=== PATIENT | male | born 1985 | race Caucasian/White ===

== ENCOUNTER 2024-03-09 11:22 | Outpatient (AMB) | payer BC, SELFPAY ==
--- NOTE | 2024-03-09 11:32 | A.OFFPC_ITS ---
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 Has been out of medication for six months. 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 He reports a history of significant weight fluctuations, having lost approximately 60-70 pounds about ten years ago through increased physical activity, specifically work-related. He is considering starting on semaglutide (Wegovy) for weight loss support and reports trying various diets such as calorie counting, keto, [place], and fsuz-[id number] fat burners without significant long-term success. The patient denies a family history of thyroid cancer or personal history of pancreatitis. The patient also seeks the renewal of lisinopril, which he was previously taking at 5 mg, for management of essential hypertension. He reports having been off Wellbutrin for the past seven months after previously taking it at 300 mg and seeks to resume this medication for depressive symptoms. Additionally, the patient presents with skin discoloration along the arms and chest, which are non-pruritic and have persisted despite treatment with antifungal cream. He states the rash is pink and raised. he would like to see a credit card interviewer. 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 He has not used an EpiPen since age 20, despite engaging in outdoor activities that may expose him to allergens. Health Maintenance - Discussion on weight loss strategies, including lifestyle modifications and possible use of semaglutide. - Renewed medications for blood pressure management. - Discussed management of depressive sym ptoms with Wellbutrin. - Emphasized importance of carrying an E piPen due to history of anaphylaxis. - Recommended dermatology evaluation for skin lesions. 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 - Reports functional limitations due to current weight. - Engages in exercise, including plans f or hiking. - Significant weight loss history potent ially related to high physical activity levels. Review of Systems - Skin: Reports discoloration and non-it abelardo, non-painful lesions on arms and chest; denies itching. - Mental Health: Reports depressive epis odes, anxiety. - General: Denies current respiratory is sues or recurrent infections. Physical Exam - Cardiovascular- No noted abnormalities in auscultation. - Respiratory- Clear lung sounds upon au scultation. - Skin- Non-itchy, bumpy lesions present in a line across chest. Results Plan - Submit prescription for Wegovy conting ent on insurance approval. - Renew lisinopril 5 mg for hypertension management. - Reinitiate Wellbutrin at 150 mg once d aily with follow-up in four to six weeks to monitor response. - Prescribe EpiPen with a refill, consid ering patient's hiking activities and history of anaphylaxis. - Refer to dermatology for evaluation of skin lesions suspected as possible dermatitis; consider use of topical triamcinolone until seen. - Document dietary interventions and marci ght management attempts for insurance submission. - Print referral for [facility]. Patient was informed and verbally consented to the use of an ambient scribe for clinic note documentation during this visit. 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 I emphasized the need to cease eating when full to prevent potential adverse reactions. We revie wed past attempts at dietary modifications and potential support through medication. I addressed the patient's concerns and experience with Wellbutrin, opting to start at a lower dose due to previous discontinuation, with plans for monitoring. I reinforced the importance of having an EpiPen due to his history of severe allergic reactions and encouraged carrying it during outdoor activities. The referral to dermatology for further evaluation of skin lesions was provided, with advice to take photographs for the specialist. Overall, the patient is advised to follow up in four to six weeks for medication assessment and skin evaluation. Patient Instructions - Start Wegovy if insurance approves and follow administration instructions carefully. - Continue lisinopril 5 mg daily for blo od pressure management. - Begin Wellbutrin 150 mg daily and lakisha tor for any mood changes. - Always carry an EpiPen when outdoors, especially during hiking. - Apply the prescribed topical steroid c ream to affected skin areas as directed. - Schedule and attend dermatology appoin tment; bring photographs of skin lesions. - Maintain current dietary and exercise routines. - Follow up in four to six weeks for keven ssessment. [facility] Surgical History (Updated 03/09/24 @ 11:40 by Reema Solorio CMA) No pertinent past surgical history Family History (Updated 03/09/24 @ 11:42 by Reema Solorio CMA) Mother Stroke Maternal Grandmother Heart disease PVD (peripheral vascular disease) Father Stroke Alcoholic Other Substance abuse Social History (Updated 03/09/24 @ 11:42 by Reema Solorio CMA) Housing: Apartment Housing Other:: dulex Alcohol intake: current Patient Tobacco Use Status: Former Tobacco user Tobacco use type: Cigarette Cigarette Packs Per Day: 1 Years Smoked: 10 e-Cigarette/Vaping Use: Former Use Second Hand Smoke Exposure: No service: No Current occupational status: employed 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 1. Little interest or pleasure in doing things: not at all 2. Feeling down, depressed, or hopeless: not at all 3. Trouble falling or staying asleep, or sleeping too much: not at all 4. Feeling tired or having little energy: several days 5. Poor appetite or overeating: not at all 6. Feeling bad about yourself - or that you are a failure or have let yourself or your family down: not at all 7. Trouble concentrating on things, such as reading the newspaper or watching television: not at all 8. Moving or speaking so slowly that other people could have noticed. Or the opposite - being so fidgety or restless that you have been moving around a lot more than usual: not at all 9. Thoughts that you would be better off or of hurting yourself in some way: not at all Total score: 1 Depression Screening Interpretation: Negative Depression Screening Done: Yes [id number] - PHQ-9 Billing: Yes Source: Developed by Drs. Wero Romano, April Holcomb, Azael Whiting and colleagues, with an educational guillermo from [employer]. Thrive Questionnaire Date Thrive assessed: 03/02/24 I am a: Patient What is your living situation today?: I have a steady place to live Within the past 12 months, did the food you bought not last and you didn't have the money to get more?: Never true Within the past 12 months, did you worry whether your food would run out before you got money to buy more?: Never true Do you have trouble paying for medicines?: No Do you have trouble getting transportation to medical appointments?: No Do you have trouble paying your heating and electricity bill?: No Do you have trouble taking care of your child, family member or friend?: No Do you have trouble with day-to-day activities such as bathing, preparing meals, shopping, managing finances, etc.?: No Are you currently unemployed and looking for a job?: No Are you interested in more education?: No Please select the resources that you would like help with: None Currently or been in a relationship where the following occur: No concerns reported THRIVE Score: 0 AUDIT C Alcohol Use Questionnaire (AUDIT-C) 1. How often do you have a drink containing alcohol?: 2-4 times a month 2. How many drinks containing alcohol do you have on a typical day when you are drinking?: 3 or 4 3. How often do you have six or more drinks on one occasion?: Less than monthly Total Score: 4 DUANE-7 AMB Questionnaire DUANE-7 Date DUANE - 7 assessed: 03/09/24 Feeling nervous, anxious, or on edge: 1 = Several days Not being able to stop or control worryin = Not at all Worrying too much about different things: 1 = Several days Trouble relaxin = Not at all Being so restless that it is hard to sit still: 0 = Not at all Becoming easily annoyed or irritable: 1 = Several days Feeling afraid as if something awful might happen: 0 = Not at all Total DUANE-7 score (0-4 normal; 5-9 mild; 10-14 moderate; 15-21 severe): 3 Source: Developed by Drs. Wero Romano, April Holcomb, Azael Whiting and colleagues, with an educational guillermo from [employer]. DUANE-7 Assessment Billing DUANE-7 Assessment Tool: DUANE-7 Assessment 33922 Physical exam (Primary Care) Vital Signs: Last Vital Signs Pulse 85 03/09/24 11:35 BP 132/88 03/09/24 11:35 Pulse Ox 96 03/09/24 11:35 Oxygen Delivery Method Room Air 03/09/24 11:35 BMI result Body Mass Index 40.1 Tobacco/Smoking Status: Tobacco use Status Tobacco use date assessed 03/09/24 03/09/24 11:44 Patient Tobacco Use Status Former Tobacco user 03/09/24 11:44 Tobacco use type Cigarette 03/09/24 11:44 e-Cigarette/Vaping Use Former Use 03/09/24 11:44 PHQ-9: PHQ-9 Score PHQ-9: Total score 1 03/09/24 11:45 Depression Screening Interpretation: Negative Thrive Assessment: Date of Thrive Assessment Date Thrive assessed 03/02/24 03/09/24 11:44 Currently or been in a relationship where the following occur: No concerns reported Const Orientation/consciousness: patient oriented x3 [facility] Ears: hearing grossly normal bilaterally Neck Thyroid: Thyroid normal Lymphatic: no lymphadenopathy noted Resp Auscultation: clear to auscultation bilaterally Cardio Rate: regular rate Rhythm: regular rhythm Heart sounds: S1 normal heart sound present and S2 normal heart sound present GI Inspection: Yes normal to inspection Palpation (GI): Soft to palpation and Other GI palpation findings present (nontender, no cva tenderness) Auscultation: normoactive bowel sounds Rectal Exam - Male: Yes deferred Skin Other: There is a scattered erythematous, blanching, papular rash noted on the upper chest and on the right upper arm. Neuro General: patient oriented x3, gait normal and no focal motor deficits Coding Level of Care Code Est Pt Level 4 (04324) Complex EM visit Add On G2211 Diagnoses HTN (hypertension) I10 Severe obesity (BMI >= 40) E66.01 Skin rash R21 Dysthymia F34.1 Additional Codes DUANE-7 Assessment Billing - DUANE-7 Assessment Tool: DUANE-7 Assessment [id number] ([id number]) PHQ-9 - 28914 - PHQ-9 Billing: Yes ([id number]) Assessment & Plan Assessment & Plan (1) HTN (hypertension): Code(s): I10 - Essential (primary) hypertension Category: Medical Plan: Restart lisinopril (2) Severe obesity (BMI >= 40): Code(s): E66.01 - Morbid (severe) obesity due to excess calories Category: Medical Plan: Wegovy ordered. Discussed risks and benefits and adverse effects of this medication. Advised patient to follow up for recheck (3) Skin rash: Code(s): R21 - Rash and other nonspecific skin eruption Category: Medical Plan: Triamcinolone cream ordered. Referral to derm. (4) Dysthymia: Code(s): F34.1 - Dysthymic disorder Category: Medical Plan: wellbutrin ordered Orders: Orders Complete Blood Count Auto Diff Today E66.01 - Morbid (severe) obesity due to excess calories, I10 - Essential (primary) hypertension Comprehensive [place]. Panel Fast Today E66.01 - Morbid (severe) obesity due to excess calories, I10 - Essential (primary) hypertension Lipid Panel Today E66.01 - Morbid (severe) obesity due to excess calories, I10 - Essential (primary) hypertension TSH reflex Free T4 Today E66.01 - Morbid (severe) obesity due to excess calories, I10 - Essential (primary) hypertension Hemoglobin A1c Today E66.01 - Morbid (severe) obesity due to excess calories, I10 - Essential (primary) hypertension, R73.01 - Impaired fasting glucose Vitamin B12 and Folate Today E66.01 - Morbid (severe) obesity due to excess calories, I10 - Essential (primary) hypertension Magnesium Today E66.01 - Morbid (severe) obesity due to excess calories, I10 - Essential (primary) hypertension Referrals Dermatology Referral R21 - Rash and other nonspecific skin eruption Medications: New 2 semaglutide (weight loss) (Wegovy) 0.25 mg (0.5 mL) subcut QWEEK 2 mL 1RF bupropion HCl XL (Wellbutrin XL) 150 mg PO QAM 90 tabs 1RF triamcinolone acetonide 0.025% 1 appl topical BID 80 grams 1RF lisinopril 5 mg PO DAILY 90 tabs 0RF epinephrine (EpiPen) for 2 doses 0.3 mg (0.3 mL) IM Q10M PRN 2 ea 1RF anaphylaxis
[2024-03-09 11:35] VITALS: BP 132/88; PULSE 85; O2SAT 96; BMI 40.1
== END 2024-03-09 12:12 | disposition home or self-care (01) ==
PROVIDERS: PCP Physician Assistant; Visit Provider Physician Assistant
DX: I10 Essential (primary) hypertension (principal); E66.01 Morbid (severe) obesity due to excess calories; Z68.41 Body mass index [BMI] 40.0-44.9, adult; R21 Rash and other nonspecific skin eruption; F34.1 Dysthymic disorder

== ENCOUNTER → 2024-03-09 11:22 | Outpatient (BNVA) | payer BC, SELFPAY | PROVIDERS: PCP Physician Assistant; Visit Provider Physician Assistant | DX: I10 Essential (primary) hypertension (principal); E66.01 Morbid (severe) obesity due to excess calories; Z68.41 Body mass index [BMI] 40.0-44.9, adult; R21 Rash and other nonspecific skin eruption; F34.1 Dysthymic disorder | CPT/HCPCS: 96127 ==

== ENCOUNTER 2024-03-13 10:34 | Outpatient (REF) | payer BC, SELFPAY ==
[2024-03-13 14:22] LABS: MANUAL DIFF FLAG NO
[2024-03-13 14:38] LABS: Basophils Percent Auto 0.4 % (0-2); Eosinophils Absolute Auto 0.1 X10*3/uL (0.0-0.4); Eosinophils Percent Auto 1.1 % (0-4); Hematocrit 44.7 % (42.0-52.0); Hemoglobin 15.5 g/dl (14.0-18.0); Imm Gran Abs Auto 0.02 X10*3/uL (0.00-0.03); Imm Gran Pct Auto 0.4 % (0.0-0.4); Lymphocytes Absolute Auto 1.5 X10*3/uL (1.2-4.9); Lymphocytes Percent Auto 27.9 % (20-40); Mean Corpuscular HGB Conc 34.7 g/dl (31.0-36.0); Mean Corpuscular Hemoglobin 31.6 pg (27.0-33.0); Mean Platelet Volume 9.2 fL (9.4-12.4); Monocytes Absolute Auto 0.5 X10*3/uL (0.1-1.2); Monocytes Percent Auto 8.7 % (2-11); Neutrophils Absolute Auto 3.3 x10*3/uL (2.0-8.3); Neutrophils Percent Auto 61.5 % (45-73); Platelet Count 267 X10*3/uL (160-400); Red Blood Count 4.91 X10*6/uL (4.60-5.80); Red Cell Distribution Width 11.6 % (11.0-16.0); White Blood Count 5.3 X10*3/uL (4.8-10.8)
[2024-03-13 14:43] LABS: Estimated Average Glucose 88 mg/dL; Hemoglobin A1C 112.4688 umol/L; Hemoglobin A1c % 4.7 % (<6.0); Total Hemoglobin (HGBA1C) 3975.5291 umol/L
[2024-03-13 15:14] LABS: Alanine Aminotransferase 32 U/L (0-40); Albumin Level 4.6 g/dL (3.5-5.0); Anion Gap 15 (12-20); Aspartate Amino Transferase 29 U/L (5-37); Bilirubin Total 0.9 mg/dL (0.0-1.0); Blood Urea Nitrogen 14 mg/dL (9-16); Calcium 9.6 mg/dL (8.4-10.2); Carbon Dioxide 24 mmol/L (22-29); Chloride 105 mmol/L (96-108); Cholesterol 176 mg/dL (<200); Estimated Glomerular Filt Rate > 60; Glucose Fasting 62 mg/dL (60-99); HDL Cholesterol 33 mg/dL (>40); LDL Cholesterol Calculated 123 mg/dL (<100); Magnesium 2.2 mg/dL (1.6-2.6); Potassium 3.9 mmol/L (3.3-5.1); Sodium 140 mmol/L (135-145); Total Protein 7.8 g/dL (6.5-8.0); Triglycerides 102 mg/dL (<150)
[2024-03-13 15:26] LABS: TSH reflex Free T4 0.75 uIU/mL (0.32-4.0)
[2024-03-13 15:34] LABS: Folate 4.1 ng/mL (> or = 4.0); Vitamin B12 470 pg/mL (200-900)
[2024-03-13 15:45] LABS: Alkaline Phosphatase 73 U/L (39-117)
== END 2024-03-13 10:35 | disposition home or self-care (01) ==
LOC: HO.WFDLDS 10:34
PROVIDERS: Visit Provider Physician Assistant
DX: I10 Essential (primary) hypertension (principal); E66.01 Morbid (severe) obesity due to excess calories; R73.01 Impaired fasting glucose
CPT/HCPCS: 36415; 80053; 80061; 82607; 82746; 83036; 83735; 84443; 85025

== ENCOUNTER 2024-04-06 11:01 | Outpatient (AMB) | payer BC, SELFPAY ==
--- NOTE | 2024-04-06 11:20 | A.OFFPC_ITS ---
Vital Signs 04/06/24 11:23 Height 5 ft 9.33 in Weight 264 lb 4 oz BMI 38.6 BP 118/86 Blood Pressure Location Rt brachial Position Sitting Pulse 77 Pulse Source Pulse Oximeter Pulse Oximetry (%) 99 Oxygen Delivery Method Room Air Intake Visit Reasons: labs and meds Intake Note: Follow up. lab results. Tip Tester Required: No Allergies Penicillins Allergy (Unknown, Verified 03/09/24 11:33) Rash bee stings Allergy (Severe, Uncoded 03/09/24 11:33) Anaphylaxis Medication List - Last Reconciled 04/06/24 by Julia Lopez PA-C bupropion HCl XL (Wellbutrin XL) 150 mg PO QAM epinephrine (EpiPen) 0.3 mg (0.3 mL) IM Q10M PRN lisinopril 5 mg PO DAILY triamcinolone acetonide 0.025% 1 appl topical BID Tobacco use date assessed: 03/09/24 Dental Screening Dental Screen Date: 03/09/24 HPI labs and meds HPI Details Patient is a 39-year-old male who presents today for a follow up. CV: Blood pressure today in the office is 118/86. He is currently on lisinopril 5 mg. Psych: Doing well on Wellbutrin 150 mg. No SI/HI. General: Recently started on Wegovy. Tolerating well. He has lost 10 lb since our last visit. [facility] Surgical History (Updated 03/09/24 @ 11:40 by Reema Solorio CMA) No pertinent past surgical history Family History (Updated 03/09/24 @ 11:42 by Reema Solorio CMA) Mother Stroke Maternal Grandmother Heart disease PVD (peripheral vascular disease) Father Stroke Alcoholic Other Substance abuse Social History (Updated 03/09/24 @ 11:42 by Reema Solorio CMA) Housing: Apartment Housing Other:: dulex Alcohol intake: current Patient Tobacco Use Status: Former Tobacco user Tobacco use type: Cigarette Cigarette Packs Per Day: 1 Years Smoked: 10 e-Cigarette/Vaping Use: Former Use Second Hand Smoke Exposure: No service: No Current occupational status: employed 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 Current occupational exposures/hazards: Yes Cognitive needs: No Hearing needs: No Vision needs: No Questionnaire Thrive Questionnaire Date Thrive assessed: 03/02/24 I am a: Patient What is your living situation today?: I have a steady place to live Within the past 12 months, did the food you bought not last and you didn't have the money to get more?: Never true Within the past 12 months, did you worry whether your food would run out before you got money to buy more?: Never true Do you have trouble paying for medicines?: No Do you have trouble getting transportation to medical appointments?: No Do you have trouble paying your heating and electricity bill?: No Do you have trouble taking care of your child, family member or friend?: No Do you have trouble with day-to-day activities such as bathing, preparing meals, shopping, managing finances, etc.?: No Are you currently unemployed and looking for a job?: No Are you interested in more education?: No Please select the resources that you would like help with: None Currently or been in a relationship where the following occur: No concerns rep orted THRIVE Score: 0 DUANE-7 AMB Questionnaire DUANE-7 Date DUANE - 7 assessed: 03/09/24 Source: Developed by Drs. Wero Romano, April Holcomb, Azael Whiting and colleagues, with an educational guillermo from [employer]. Physical exam (Primary Care) Vital Signs: Last Vital Signs Pulse 77 04/06/24 11:23 BP 118/86 04/06/24 11:23 Pulse Ox 99 04/06/24 11:23 Oxygen Delivery Method Room Air 04/06/24 11:23 BMI result Body Mass Index 38.6 Tobacco/Smoking Status: Tobacco use Status Tobacco use date assessed 03/09/24 04/06/24 11:22 Patient Tobacco Use Status Former Tobacco user 04/06/24 11:22 Tobacco use type Cigarette 04/06/24 11:22 e-Cigarette/Vaping Use Former Use 04/06/24 11:22 Thrive Assessment: Date of Thrive Assessment Date Thrive assessed 03/02/24 04/06/24 11:22 Currently or been in a relationship where the following occur: No concerns reported Const Orientation/consciousness: patient oriented x3 [facility] Ears: hearing grossly normal bilaterally Neck Thyroid: Thyroid normal Lymphatic: no lymphadenopathy noted Resp Auscultation: clear to auscultation bilaterally Cardio Rate: regular rate Rhythm: regular rhythm Heart sounds: S1 normal heart sound present and S2 normal heart sound present GI Inspection: Yes normal to inspection Palpation (GI): Soft to palpation and Other GI palpation findings present (nontender, no cva tenderness) Auscultation: normoactive bowel sounds Rectal Exam - Male: Yes deferred Skin General skin exam: no rashes or lesions noted Neuro General: patient oriented x3, gait normal and no focal motor deficits Results Reviewed Results Reviewed: Laboratory Tests 03/13/24 10:35 WBC 5.3 RBC 4.91 Hgb 15.5 Hct 44.7 Plt Count 267 Sodium 140 Potassium 3.9 Chloride 105 Carbon Dioxide 24 Anion Gap 15 BUN 14 Creatinine 0.82 Estimated GFR > 60 Fasting Glucose 62 Hemoglobin A1c % 4.7 Calcium 9.6 Magnesium 2.2 AST 29 ALT 32 Cholesterol 176 LDL Cholesterol, Calc 123 H HDL Cholesterol 33 L Vitamin B12 470 TSH 0.75 Coding Level of Care Code Est Pt Level 4 (96556) Complex EM visit Add On G2211 Diagnoses Dysthymia F34.1 Severe obesity (BMI >= 40) E66.01 HTN (hypertension) I10 Assessment & Plan Assessment & Plan (1) Dysthymia: Code(s): F34.1 - Dysthymic disorder Category: Medical Plan: doing well on wellbutrin (2) Severe obesity (BMI >= 40): Code(s): E66.01 - Morbid (severe) obesity due to excess calories Category: Medical Plan: down 10 lbs increased wegovy to 0.5 mg (3) HTN (hypertension): Code(s): I10 - Essential (primary) hypertension Category: Medical Plan: Continue current regimen. Tolerating well. Orders: Orders Basic Metabolic Panel Today E66.01 - Morbid (severe) obesity due to excess calories, I10 - Essential (primary) hypertension Medications: New semaglutide (weight loss) (Wegovy) 0.5 mg (0.5 mL) subcut QWEEK 2 mL 1RF
[2024-04-06 11:23] VITALS: BP 118/86; PULSE 77; O2SAT 99; BMI 38.6
== END 2024-04-06 11:53 | disposition home or self-care (01) ==
PROVIDERS: PCP Physician Assistant; Visit Provider Physician Assistant
DX: I10 Essential (primary) hypertension (principal); F34.1 Dysthymic disorder; E66.01 Morbid (severe) obesity due to excess calories; Z68.38 Body mass index [BMI] 38.0-38.9, adult

== ENCOUNTER 2024-07-06 09:32 | Outpatient (AMB) | payer BC, SELFPAY ==
[2024-07-06 09:44] VITALS: BP 130/82; PULSE 67; RESP 16; O2SAT 97; BMI 36.5
--- NOTE | 2024-07-06 09:44 | A.OFFPC_ITS ---
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: No Allergies Penicillins Allergy (Unknown, Verified 07/06/24 09:45) Rash bee stings Allergy (Severe, Uncoded 07/06/24 09:45) Anaphylaxis Medication List - Last Reconciled 07/06/24 by Julia Lopez PA-C bupropion HCl XL (Wellbutrin XL) 150 mg PO QAM epinephrine (EpiPen) 0.3 mg (0.3 mL) IM Q10M PRN lisinopril 5 mg PO DAILY multivitamin 1 tab PO DAILY semaglutide (weight loss) (Wegovy) 0.5 mg (0.5 mL) subcut QWEEK Tobacco use date assessed: 07/06/24 Dental Screening Dental Screen Date: 07/06/24 Did you have a dental visit in the last 12 months?: Yes Did you have a dental problem in the last 6 months where you did not have access to dental care?: No Was dental information given to patient?: Patient has dentist HPI f/u meds HPI Details Patient is a 39-year-old male who presents today for a follow up. CV: Blood pressure today in the office is 130/82. He is currently on lisinopril 5 mg. Psych: Doing well on Wellbutrin 150 mg. No SI/HI. General: Recently started on Wegovy. Tolerating well. He has lost 30 lbs so far with wegovy and diet. [facility] Surgical History (Updated 03/09/24 @ 11:40 by Reema Solorio CMA) No pertinent past surgical history Family History (Updated 03/09/24 @ 11:42 by Reema Solorio CMA) Mother Stroke Maternal Grandmother Heart disease PVD (peripheral vascular disease) Father Stroke Alcoholic Other Substance abuse Social History (Updated 03/09/24 @ 11:42 by Reema Solorio CMA) Housing: Apartment Housing Other:: dulex Alcohol intake: current Patient Tobacco Use Status: Former Tobacco user Tobacco use type: Cigarette Cigarette Packs Per Day: 1 Years Smoked: 10 e-Cigarette/Vaping Use: Former Use Second Hand Smoke Exposure: No service: No Current occupational status: employed 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 Current occupational exposures/hazards: Yes Cognitive needs: No Hearing needs: No Vision needs: No Questionnaire Thrive Questionnaire Date Thrive assessed: 03/02/24 I am a: Patient What is your living situation today?: I have a steady place to live Within the past 12 months, did the food you bought not last and you didn't have the money to get more?: Never true Within the past 12 months, did you worry whether your food would run out before you got money to buy more?: Never true Do you have trouble paying for medicines?: No Do you have trouble getting transportation to medical appointments?: No Do you have trouble paying your heating and electricity bill?: No Do you have trouble taking care of your child, family member or friend?: No Do you have trouble with day-to-day activities such as bathing, preparing meals, shopping, managing finances, etc.?: No Are you currently unemployed and looking for a job?: No Are you interested in more education?: No Please select the resources that you would like help with: None Currently or been in a relationship where the following occur: No concerns reported THRIVE Score: 0 AUDIT C Alcohol Use Questionnaire (AUDIT-C) 1. How often do you have a drink containing alcohol?: 2-4 times a month 2. How many drinks containing alcohol do you have on a typical day when you are drinking?: 3 or 4 3. How often do you have six or more drinks on one occasion?: Never Total Score: 3 DUANE-7 AMB Questionnaire DUANE-7 Date DUANE - 7 assessed: 03/09/24 Source: Developed by Drs. Wero Romano, April Holcomb, Azael Whiting and colleagues, with an educational guillermo from [employer]. Physical exam (Primary Care) Vital Signs: Last Vital Signs Pulse 67 07/06/24 09:44 Resp 16 07/06/24 09:44 BP 130/82 07/06/24 09:44 Pulse Ox 97 07/06/24 09:44 Oxygen Delivery Method Room Air 07/06/24 09:44 BMI result Body Mass Index 36.5 Tobacco/Smoking Status: Tobacco use Status Tobacco use date assessed 07/06/24 07/06/24 09:49 Patient Tobacco Use Status Former Tobacco user 07/06/24 09:49 Tobacco use type Cigarette 07/06/24 09:49 e-Cigarette/Vaping Use Former Use 07/06/24 09:49 Thrive Assessment: Date of Thrive Assessment Date Thrive assessed 03/02/24 07/06/24 09:49 Currently or been in a relationship where the following occur: No concerns reported Const Orientation/consciousness: patient oriented x3 HENMT Ears: hearing grossly normal bilaterally Neck Thyroid: Thyroid normal Lymphatic: no lymphadenopathy noted Resp Auscultation: clear to auscultation bilaterally Cardio Rate: regular rate Rhythm: regular rhythm Heart sounds: S1 normal heart sound present and S2 normal heart sound present GI Inspection: Yes normal to inspection Palpation (GI): Soft to palpation and Other GI palpation findings present (nontender, no cva tenderness) Auscultation: normoactive bowel sounds Rectal Exam - Male: Yes deferred Skin General skin exam: no rashes or lesions noted Neuro General: patient oriented x3, gait normal and no focal motor deficits Coding Level of Care Code Est Pt Level 4 (63396) Complex EM visit Add On G2211 Diagnoses Severe obesity (BMI >= 40) E66.01 HTN (hypertension) I10 Assessment & Plan Assessment & Plan (1) Severe obesity (BMI >= 40): Code(s): E66.01 - Morbid (severe) obesity due to excess calories Category: Medical Plan: improving with wegovy increasing dosage (2) HTN (hypertension): Code(s): I10 - Essential (primary) hypertension Category: Medical Plan: wnl continue lisinopril 5 mg Medications: New semaglutide (weight loss) (Wegovy) 1 mg (0.5 mL) subcut Q7D 2 mL 2RF
== END 2024-07-06 10:11 | disposition home or self-care (01) ==
LOC: HO.HMCFM 09:33
PROVIDERS: PCP Physician Assistant; Visit Provider Physician Assistant
DX: I10 Essential (primary) hypertension (principal); E66.01 Morbid (severe) obesity due to excess calories; Z68.36 Body mass index [BMI] 36.0-36.9, adult

== ENCOUNTER → 2024-07-06 09:32 | Outpatient (BNVA) | payer BC, SELFPAY | PROVIDERS: PCP Physician Assistant; Visit Provider Physician Assistant | DX: Z13.89 Encounter for screening for other disorder (principal) ==

== ENCOUNTER 2024-07-17 08:58 | Outpatient (REF) | payer BC, SELFPAY ==
[2024-07-17 11:52] LABS: Anion Gap 12 (12-20); Blood Urea Nitrogen 8 mg/dL (9-16); Calcium 9.7 mg/dL (8.4-10.2); Carbon Dioxide 28 mmol/L (22-29); Chloride 104 mmol/L (96-108); Estimated Glomerular Filt Rate > 60; Glucose Random 81 mg/dL (60-115); Sodium 140 mmol/L (135-145)
== END 2024-07-17 08:59 | disposition home or self-care (01) ==
LOC: HO.WFDLDS 08:58
PROVIDERS: Visit Provider Physician Assistant
DX: I10 Essential (primary) hypertension (principal); E66.01 Morbid (severe) obesity due to excess calories
CPT/HCPCS: 36415; 80048

== ENCOUNTER 2024-12-13 10:02 | Outpatient (AMB) | payer BC, SELFPAY ==
--- NOTE | 2024-12-13 10:07 | MHC.PC.OV ---
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 CV: Blood pressure today in the office is 118/74. He is currently on lisinopril 5 mg. Psych: Doing well on Wellbutrin 150 mg. No SI/HI. General: Recently started on Wegovy. Tolerating well. He has lost 40 lbs so far with wegovy and diet. Insurance is not going to be covering anymore. [facility] Surgical History (Updated 03/09/24 @ 11:40 by Reema Solorio CMA) No pertinent past surgical history Family History (Updated 03/09/24 @ 11:42 by Reema Solorio CMA) Mother Stroke Maternal Grandmother Heart disease PVD (peripheral vascular disease) Father Stroke Alcoholic Other Substance abuse Social History (Updated 03/09/24 @ 11:42 by Reema Solorio CMA) Housing: Apartment Housing Other:: dulex Alcohol intake: current Patient Tobacco Use Status: Former Tobacco user Tobacco use type: Cigarette Cigarette Packs Per Day: 1 Years Smoked: 10 e-Cigarette/Vaping Use: Former Use Second Hand Smoke Exposure: No service: No Current occupational status: employed 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 Current occupational exposures/hazards: Yes Cognitive needs: No Hearing needs: No Vision needs: No Questionnaire Thrive Questionnaire Date Thrive assessed: 03/02/24 I am a: Patient What is your living situation today?: I have a steady place to live Within the past 12 months, did the food you bought not last and you didn't have the money to get more?: Never true Within the past 12 months, did you worry whether your food would run out before you got money to buy more?: Never true Do you have trouble paying for medicines?: No Do you have trouble getting transportation to medical appointments?: No Do you have trouble paying your heating and electricity bill?: No Do you have trouble taking care of your child, family member or friend?: No Do you have trouble with day-to-day activities such as bathing, preparing meals, shopping, managing finances, etc.?: No Are you currently unemployed and looking for a job?: No Are you interested in more education?: No Please select the resources that you would like help with: None Currently or been in a relationship where the following occur: No concerns reported THRIVE Score: 0 AUDIT C Alcohol Use Questionnaire (AUDIT-C) 1. How often do you have a drink containing alcohol?: 2-4 times a month 2. How many drinks containing alcohol do you have on a typical day when you are drinking?: 3 or 4 3. How often do you have six or more drinks on one occasion?: Never Total Score: 3 DUANE-7 AMB Questionnaire DUANE-7 Date DUANE - 7 assessed: 03/09/24 Source: Developed by Drs. Wero Romano, April Holcomb, Azael Whiting and colleagues, with an educational guillermo from [employer]. Physical exam (Primary Care) Vital Signs: Last Vital Signs Temp 98 F 12/13/24 10:08 Pulse 78 12/13/24 10:08 Resp 14 12/13/24 10:08 BP 118/74 12/13/24 10:08 Pulse Ox 98 12/13/24 10:08 Oxygen Delivery Method Room Air 12/13/24 10:08 BMI result Body Mass Index 36.9 Tobacco/Smoking Status: Tobacco use Status Tobacco use date assessed 12/13/24 12/13/24 10:14 Patient Tobacco Use Status Former Tobacco user 12/13/24 10:14 Tobacco use type Cigarette 12/13/24 10:14 e-Cigarette/Vaping Use Former Use 12/13/24 10:14 Thrive Assessment: Date of Thrive Assessment Date Thrive assessed 03/02/24 12/13/24 10:14 Currently or been in a relationship where the following occur: No concerns reported Const Orientation/consciousness: patient oriented x3 HENMT Ears: hearing grossly normal bilaterally Neck Thyroid: Thyroid normal Lymphatic: no lymphadenopathy noted Resp Auscultation: clear to auscultation bilaterally Cardio Rate: regular rate Rhythm: regular rhythm Heart sounds: S1 normal heart sound present and S2 normal heart sound present GI Inspection: Yes normal to inspection Palpation (GI): Soft to palpation and Other GI palpation findings present (nontender, no cva tenderness) Auscultation: normoactive bowel sounds Rectal Exam - Male: Yes deferred Skin General skin exam: no rashes or lesions noted Neuro General: patient oriented x3, gait normal and no focal motor deficits Coding Level of Care Code Est Pt Level 4 (53081) Complex EM visit Add On G2211 Diagnoses HTN (hypertension) I10 Dysthymia F34.1 Severe obesity (BMI >= 40) E66.01 Assessment & Plan Assessment & Plan (1) HTN (hypertension): Code(s): I10 - Essential (primary) hypertension Category: Medical Plan: Continue lisinopril (2) Dysthymia: Code(s): F34.1 - Dysthymic disorder Category: Medical Plan: Doing well on Wellbutrin (3) Severe obesity (BMI >= 40): Code(s): E66.01 - Morbid (severe) obesity due to excess calories Category: Medical Plan: He has been well-controlled with Wegovy but is going to try to come off of this. He will let me know if he wants to consider paying [id number] Orders: Orders Complete Blood Count Auto Diff Today E66.01 - Morbid (severe) obesity due to excess calories, F34.1 - Dysthymic disorder, I10 - Essential (primary) hypertension, Z00.00 - Encounter for general adult medical examination without abnormal findings Comprehensive Ware. Panel Fast Today E66.01 - Morbid (severe) obesity due to excess calories, F34.1 - Dysthymic disorder, I10 - Essential (primary) hypertension, Z00.00 - Encounter for general adult medical examination without abnormal findings Lipid Panel Today E66.01 - Morbid (severe) obesity due to excess calories, F34.1 - Dysthymic disorder, I10 - Essential (primary) hypertension, Z00.00 - Encounter for general adult medical examination without abnormal findings TSH reflex Free T4 Today E66.01 - Morbid (severe) obesity due to excess calories, F34.1 - Dysthymic disorder, I10 - Essential (primary) hypertension, Z00.00 - Encounter for general adult medical examination without abnormal findings Microalbumin, Random (w Creat) Today E66.01 - Morbid (severe) obesity due to excess calories, F34.1 - Dysthymic disorder, I10 - Essential (primary) hypertension, Z00.00 - Encounter for general adult medical examination without abnormal findings Referrals Dermatology Referral R21 - Rash and other nonspecific skin eruption Medications: Refilled lisinopril 5 mg PO DAILY 90 tabs 3RF semaglutide (weight loss) (Wegovy) 1 mg (0.5 mL) subcut QWEEK 2 mL 2RF bupropion HCl XL (Wellbutrin XL) 150 mg PO QAM 90 tabs 1RF
[2024-12-13 10:08] VITALS: BP 118/74; PULSE 78; RESP 14; TEMP 36.6; O2SAT 98; BMI 36.9
--- OUTSIDE RECORDS SUMMARY | 2024-12-13 12:12 | XMS_ITS | Clinical Summary ---
Author Organization [facility] Address [address] [place] [phone] Phone Care Team Providers Care Retail Client Solutions Analyst Name Role Phone Julia Lopez Primary Care Provider [phone] Allergies Active Allergy Reactions Criticality Noted Date Comments Penicillins Hives,Itching,Rash Low 10/28/2017 ?anaphylaxis Venom-Honey Bee 10/28/2017 Anaphylaxis At age of 11yrs old Medications multivitamin per tablet Take by mouth. Active ibuprofen (ADVIL,MOTRIN) 600 MG tablet take 1 tablet by mouth three times a day for 7 days 11/06/2023 Active Social History Tobacco Use Types Packs/Day Years Used Date Smoking Tobacco: Never Smokeless Tobacco: Never Tobacco Cessation:Counseling Given: Not Answered Education Answer Date Recorded Are you interested in more education? Not on ayse e 11/09/2023 Are you concerned about learning? Not on file 11/09/2023 No 11/09/2023 No 11/09/2023 Digital Access Answer Date Recorded No 11/09/2023 No 11/09/2023 Reliable internet access at home? Not on file 11/09/2023 Device with a working camera? Not on file Sex and Gender Information Value Date Recorded Sex Assigned at Male 11/09/2023 2:13 PM EDT Legal Sex Male 10:16 AM EDT Gender Identity Male 11/09/2023 2:13 PM EDT Sexual Orientation Straight 11/09/2023 2: 13 PM EDT Plan of Treatment Health Maintenance Due Date Last Done Comments LIPID PANEL 1987 DEPRESSION SCREENING 1999 HEPATITIS C SCREENING 2005 HIV ONE-TIME SCREENING (18-6 5 YEARS) 2005 INFLUENZA VACCINE (#1) 2024 11/26/2018 COVID-19 VACCINE (3 2024-2 6 season) 2024 03/29/2020, 03/01/2020 Adult Td,Tdap Booster 02/04/2028 02/03/2018 MENINGOCOCCAL VACCINES (ACWY) Aged Out 02/03/2018 No longer eligible based on patient's age to complete this topic SMOKING STATUS SCREENING (On ce After 26 Yrs) Completed 12/31/2023 HEPATITIS A VACCINES Aged Out No long er eligible based on patient's age to complete this topic HIB VACCINES Aged Out No longer eligi ble based on patient's age to complete this topic MENINGOCOCCAL VACCINES (B) Aged Out N o longer eligible based on patient's age to complete this topic PNEUMOCOCCAL VACCINES (0-49 years) Aged Out No longer eligible b ased on patient's age to complete this topic Medical Devices Not on file Insurance [facility] [id number] [facility] [place] [phone] [facility] [place] [id number] [facility] Care Teams Retail Client Solutions Analyst Relationship Specialty Start Date End Date Julia Lopez PA [address] [place] [id number] PCP - General Physician Certified Control Systems Technician 12/31/23 Additional Source Comments The information contained in this document represents components of the legal health record. It is not the complete legal health record.[facility]
--- OUTSIDE RECORDS SUMMARY | 2024-12-13 12:12 | XMS_ITS ---
Author Name [facility] Organization Unknown Care Team Organization Name Specialty Phone Email Start Date End Da te [facility] Wendy Villalobos Primary Care 12/23/2021 10/04/2023
== END 2024-12-13 10:24 | disposition home or self-care (01) ==
LOC: HO.HMCFM 10:03
PROVIDERS: PCP Physician Assistant; Visit Provider Physician Assistant
DX: I10 Essential (primary) hypertension (principal); F34.1 Dysthymic disorder; E66.01 Morbid (severe) obesity due to excess calories; Z68.36 Body mass index [BMI] 36.0-36.9, adult